=== PATIENT | female | born 1970 | race Caucasian/White ===

== ENCOUNTER 2019-07-08 11:47 | Observation (INO) ==
[2019-07-08] MEDS ORDERED: NS 1,000 ML IV ONE (11:58)
--- NOTE | 2019-07-08 12:00 | PROVIDER DOCUMENTATION ---
HPI-Screening - General Chief Complaint: SEPSIS ALERT - D Stated Complaint: ABNORMAL LABS Time Seen by Provider: 07/08/19 11:54 Source: patient Allergies/Adverse Reactions: Allergies Allergy/AdvReac Type Severity Reaction Status Date / Time No Known Allergies Allergy Verified 03/09/18 18:27 Home Medications: Home Medication List Medication Instructions Recorded Confirmed Last Taken Type Albuterol Sulfate [Proair Hfa] 8.5 gm INH DIRECTED 03/09/18 03/09/18 Unknown History Ciprofloxacin HCl [Cipro] 500 mg PO BID 03/09/18 03/09/18 Unknown History Methocarbamol [Robaxin-750] 750 mg PO BID PRN #60 tablet 03/09/18 Unknown Rx Naproxen 500 mg PO BID PRN PRN #60 tablet 03/09/18 Unknown Rx Patient arrived via EMS?: No HPI: 48yof present to ER with c/o flank and suprapubic pain onset Monday. States she started having n/v yesterday. Pt was seen at [facility] this morning and referred here due to RLQ abd tenderness and WBC 14. Denies fever. Pt diaphoretic. Physical Exam-Screening - CONSTITUTIONAL General Appearance: alert, mild distress - RESPIRATORY Respiratory: lungs clear, normal breath sounds - CARDIOVASCULAR Cardiovascular: tachycardia - GASTROINTESTINAL (ABDOMEN) Abdominal Exam: normal bowel sounds, soft, tenderness (RUQ and RLQ). negative: distended, guarding, rigid, rebound - SKIN Integumentary: normal color, diaphoresis, warm - NEUROLOGIC Neurologic: grossly normal - PSYCHIATRIC Psych/Mental Status: normal mood/affect, normal thought content, normal thought process, oriented x 3 Screening Depart - Departure ED Screening Disposition: Continued in ED for Treatment Date of Disposition Decision: 07/08/19 Time of Disposition Decision: 12:00 DIAGNOSIS: Abdominal pain Qualifiers: Abdominal location: unspecified location Qualified Code(s): R10.9 - Unspecified abdominal pain Referrals and Follow-Ups: Francisco Javier Butler MD [Primary Care Provider] - Attestation - Physician/ JUSTEN Attestation Patient care was provided by Advanced Practice Provider:: Yes Advanced Practice Provider:: Edouard Cervantes Advanced Practice Provider documentation review:: The Mid-level provider documentation, treatment plan and medical decision making was reviewed by the physician who agrees with all treatment and medical decision making by the MLP. The physician spent face to face time with patient:: No Advanced Practice Provider documentation review:: Supervising physician onsite and consulted in the evaluation and care of this patient. The physician did not have a face to face encounter with the patient.
[2019-07-08 12:17] LABS: BASO# 0.03 X1000 (0.0-0.2); BASO% 0.2 % (0.0-0.8); HEMATOCRIT 47.5 % (37.0-47.0); HEMOGLOBIN 15.5 g/dL (12.0-16.0); IMM GRAN# 0.04 X1000 (0.0-0.04); IMM GRAN% 0.3 % (0.0-0.5); LYMPH% 12.2 % (20.5-51.1); MCH 29.1 PG (27-31); MCHC 32.6 g/dL (33-37); MCV 89.3 FL (81-99); MONO# 0.65 X1000 (0.11-0.59); MONO% 4.2 % (1.7-9.3); MPV 12.3 FL (7.4-10.4); NEUT# 12.93 X1000 (1.4-6.5); NEUT% 83.1 % (42.2-75.2); PLT 253 X1000 (130-400); RBC 5.32 XMIL (4.2-5.4); RDW 14.4 % (11.5-14.5); WBC 15.55 X1000 (4.8-10.8)
[2019-07-08 12:26] LABS: INR 1.09; PROTIME 14.2 Seconds (11.0-16.0)
[2019-07-08 12:27] LABS: PTT 30.3 Seconds (22.3-41.8)
[2019-07-08 12:33] LABS: ALB/GLOB RATIO 1.1; ALBUMIN 3.8 g/dL (3.5-5.0); CALCIUM 8.9 mg/dL (8.8-10.2); TOTAL BILIRUBIN 0.37 mg/dL (0.20-1.00); TOTAL PROTEIN 7.2 g/dL (6.3-8.3)
--- NOTE | 2019-07-08 13:03 | PROVIDER DOCUMENTATION ---
HPI-Abdominal Pain/GI Problem - General Chief Complaint: SEPSIS ALERT - D Stated Complaint: ABNORMAL LABS Time Seen by Provider: 07/08/19 11:54 Source: patient Allergies/Adverse Reactions: Patient Allergies Allergy/AdvReac Type Severity Reaction Status Date / Time homatropine [From Hydromet] Allergy Mild ITCHING Verified 07/08/19 14:12 hydrocodone [From Hydromet] Allergy Mild ITCHING Verified 07/08/19 14:12 Home Medications: Home Medication List Medication Instructions Recorded Confirmed Last Taken Type Ciprofloxacin [Cipro] 250 mg PO BID #10 tab 07/08/19 Unknown Rx Dicyclomine [Bentyl] 20 mg PO BID #20 cap 07/08/19 Unknown Rx Ondansetron Odt [Zofran 4 mg Odt] 4 mg PO Q6H PRN PRN #20 tab 07/08/19 Unknown Rx Promethazine [Phenergan] 25 mg PO Q6H PRN PRN #20 tab 07/08/19 Unknown Rx - History of Present Illness-ABD Nature of Presenting Problems: 48yof present to ER with c/o abd pain onset 2 days ago. Reports pain started in bilateral flanks and suprapubic. States n/v started yesterday. Denies fever. Pt reports she went to [facility] this morning and was sent here due to elevated WBC and RLQ abd tenderness. Abdominal Pain Onset Location: reports: suprapubic, flank Pain Radiation: reports: RLQ Quality of Pain: reports: sharp, stabbing Onset/Duration: reports: 2 days ago Timing: reports: still present Associated Symptoms: reports: diaphoresis, nausea, vomiting. denies: chest pain, diarrhea, fever/chills, shortness of breath Review of Systems - Adult - REVIEW OF SYSTEMS - ADULT Constitutional: reports: no symptoms reported. denies: fever Eyes: reports: no symptoms reported Ears, Nose, Mouth & Throat: reports: no symptoms reported Cardiovascular: reports: no symptoms reported. denies: chest pain Respiratory: reports: no symptoms reported. denies: shortness of breath Gastrointestinal: reports: see HPI, abdominal pain, nausea, vomiting. denies: diarrhea Genitourinary: reports: no symptoms reported. denies: dysuria, frequency Musculoskeletal: reports: no symptoms reported Integumentary: reports: no symptoms reported Neurological: reports: no symptoms reported Psychiatric: reports: no symptoms reported Endocrine: reports: no symptoms reported Hematologic/Lymphatic: reports: no symptoms reported Allergic/Immunologic: reports: no symptoms reported All Other Systems: Reviewed and Negative Past History - Adult - PAST MEDICAL HISTORY-ADULT Review of Records: reports: Old Records Reviewed, Nursing Assessment Review, Medications Reviewed, Social history reviewed & non-contributory. Major Childhood Illnesses: reports: denies history Cardiovascular: reports: denies history Respiratory: reports: asthma Gastrointestinal: reports: denies history Obstetrical/Gynecological: reports: denies history Genitourinary: reports: denies history Musculoskeletal: reports: denies history Neurological: reports: denies history Endocrine/Immune: reports: denies history Other Conditions: reports: denies history - PRIOR SURGERIES/PROCEDURES Surgical/Procedure History: reports: cholecystectomy, hysterectomy - IMMUNIZATION STATUS Childhood Immunizations: See Nurse Assessment Flu Vaccine: See Nurse Assessment - SOCIAL HISTORY Smoking: denies Physical Exam-General - PHYSICAL EXAM-ADULT Initial Vital Signs Reviewed: Yes - CONSTITUTIONAL General Appearance: alert, mild distress, anxious - HEAD, EARS, NOSE, MOUTH & THROAT HENMT: moist mucous membranes. negative: angioedema - NECK Neck: full range of motion, supple, normal inspection - RESPIRATORY Respiratory: lungs clear, normal breath sounds, no respiratory distress, no accessory muscle use - CARDIOVASCULAR Cardiovascular: tachycardia - GASTROINTESTINAL (ABDOMEN) Abdominal Exam: normal bowel sounds, soft, tenderness (RLQ, RUQ). negative: distended, guarding, rigid, rebound - MUSCULOSKELETAL Back Exam: normal inspection, no CVA tenderness Extremity: normal range of motion, normal gait, normal inspection - SKIN Integumentary: normal color, diaphoresis, warm - NEUROLOGIC Neurologic: grossly normal, no motor/sensory deficits - PSYCHIATRIC Psych/Mental Status: normal thought content, normal thought process, oriented x 3, anxious Progress - PLAN OF CARE/RESULTS Progress/Plan/Lab Results: Vital Signs - 8 hr 07/08/19 11:51 Temperature 97.8 F Pulse Rate 114 H Respiratory Rate 22 Blood Pressure 127/71 O2 Sat by Pulse Oximetry 97 Laboratory Results - last 24 hr 07/08/19 07/08/19 07/08/19 12:05 12:05 12:05 WBC 15.55 H RBC 5.32 Hgb 15.5 Hct 47.5 H MCV 89.3 MCH 29.1 MCHC 32.6 L RDW Std Deviation 14.4 Plt Count 253 MPV 12.3 H Immature Gran % (Auto) 0.3 Neut % (Auto) 83.1 H Lymph % (Auto) 12.2 L [place] % (Auto) 4.2 Eos % (Auto) 0.0 Baso % (Auto) 0.2 Immature Gran # (Auto) 0.04 Neut # (Auto) 12.93 H Lymph # (Auto) 1.90 [place] # (Auto) 0.65 H Eos # (Auto) 0.00 Baso # (Auto) 0.03 PT 14.2 INR 1.09 PTT (Actin FS) 30.3 Sodium 137 Potassium 4.0 Chloride 98 Carbon Dioxide 21 L Anion Gap 18 BUN 14 Creatinine 1.0 H Estimated GFR/1.73 m2 59 BUN/Creatinine Ratio 14 Glucose 145 H Calculated Osmolality 277 Calcium 8.9 Total Bilirubin 0.37 AST 50 H ALT 63 H Alkaline Phosphatase 171 H Creatine Kinase 94 Troponin T Total Protein 7.2 Albumin 3.8 Globulin 3.4 Albumin/Globulin Ratio 1.1 Plasma Lactate 07/08/19 07/08/19 12:05 12:05 WBC RBC Hgb Hct MCV MCH MCHC RDW Std Deviation Plt Count MPV Immature Gran % (Auto) Neut % (Auto) Lymph % (Auto) [place] % (Auto) Eos % (Auto) Baso % (Auto) Immature Gran # (Auto) Neut # (Auto) Lymph # (Auto) [place] # (Auto) Eos # (Auto) Baso # (Auto) PT INR PTT (Actin FS) Sodium Potassium Chloride Carbon Dioxide Anion Gap BUN Creatinine Estimated GFR/1.73 m2 BUN/Creatinine Ratio Glucose Calculated Osmolality Calcium Total Bilirubin AST ALT Alkaline Phosphatase Creatine Kinase Troponin T < 0.010 Total Protein Albumin Globulin Albumin/Globulin Ratio Plasma Lactate 1.2 Orders Category Date Time Status Cardiac Monitoring DIRECTED Care 07/08/19 11:54 Active IV Insertion ORDERED Care 07/08/19 11:54 Active Notify MD of + Sepsis Screen NOW Care 07/08/19 11:54 Active CHEST-1 VIEW [RAD] Stat Exams 07/08/19 11:[address] ABD/PELVIS W/IV CONT ONLY [CT] Stat Exams 07/08/19 11:57 Ordered BLOOD CULTURE [BLDCUL] Stat Lab 07/08/19 12:05 Ordered CBC WITH DIFF [HEME] Stat Lab 07/08/19 12:05 Completed CK PROFILE [SP CHEM] Stat Lab 07/08/19 12:05 Completed COMPREHENSIVE METABOLIC PANEL [CHEM] Stat Lab 07/08/19 12:05 Completed LACTATE, PLASMA [CHEM] Lab 07/08/19 15:00 Uncollected LACTATE, PLASMA [CHEM] Lab 07/08/19 18:00 Uncollected LACTATE, PLASMA [CHEM] Q3H Lab 07/08/19 12:05 Completed LIPASE [CHEM] Stat Lab 07/08/19 12:05 Received PROTIME WITH INR [COAG] Stat Lab 07/08/19 12:05 Completed PTT [COAG] Stat Lab 07/08/19 12:05 Completed TROPONIN T Stat Lab 07/08/19 12:05 Completed URINALYSIS W/POSS RFLX CULT [URINALYSIS] Stat Lab 07/08/19 11:54 Uncollected 0.9% Sodium Chloride Inj [Ns] 1,000 ml Med 07/08/19 11:58 Discontinued IV 999 mls/hr Oxygen Device Stat Oth 07/08/19 11:54 Active Result Diagrams: 07/08/19 12:05 07/08/19 12:05 - REASSESSMENT Reassessment #1 Time Reassessed: 15:33 (Pt states she is still having some nausea. No vomiting or diarrhea since arrival. Reviewed results thus far with pt and family member. RN at bedside to administer IV fluids and collect UA. Will reassess pending UA results) Reassessment #2 Time Reassessed: 15:56 (discussed all results with pt and tx plan.) - XRAY 1 XRAY Study: Chest Impression: See EMR Report (EXAM: CHEST-1 VIEW 07/08/2019 HISTORY: POSSIBLE SEPSIS TECHNIQUE: AP upright at 1327 COMMENT: There is no evidence of acute cardiac or pulmonary disease. There are no previous studies. IMPRESSION: No evidence of acute disease. Electronically signed by Harley Lewis 07/08/2019 1:27 PM) - CT/MRI 1 CT Study: Abdomen, Pelvis Impression: See EMR Report (EXAM: CT ABD/PELVIS W/IV CONT ONLY 07/08/2019 HISTORY: abd pain TECHNIQUE: This exam was performed using automated exposure control, adjustment of mA or kV according to patient size, and/or use of iterative reconstruction technique. COMMENT: The current examination is compared with the previous study of 03/09/2018. There is a small nodular pleural-based opacity in the anterolateral left lower lobe on image 28 which is not clearly identifiable on the previous study. The liver is hypodense suggesting fatty change. The adrenal glands are not enlarged. The gallbladder is surgically absent. The aorta is not distended. The mesenteric and renal arteries are patent. There is some fullness of the left collecting system withou t evidence of stones. There are no apparent renal masses. The appearance of the left kidney is similar to the noncontrast study of 03/09/2018. There is some fluid in the small bowel. The colon is nondistended. It is similar in appearance to the previous study. There is some mild stranding in the pericolonic fat over the transverse and ascending colon. The possibility of mild colitis cannot be excluded. There our prominent ileocolic nodes one of which measures over 10 mm in diameter and has clearly increased in size since the previous study. Pelvis: The appendix is normal in appearance. There is some induration in the subcutaneous fat directly caudal to the umbilicus of uncertain significance. The urinary bladder is not distended. There has been hysterectomy. There is an apparent cystic structure in the area of the left adnexa which was also present on the previous study and which has not changed significantly in size or appearance. There is no evidence of free fluid. The regional skeleton is intact. IMPRESSION: 1. Questionable mild colitis. Ileocolic mesenteric adenitis. 2. Hepatic steatosis. 3. Stable left adnexal cyst. Electronically signed by Harley Lewis 07/08/2019 1:41 PM) Departure - Departure Date of Disposition Decision: 07/08/19 Time of Disposition Decision: 15:56 DIAGNOSIS: Abdominal pain Qualifiers: Abdominal location: unspecified location Qualified Code(s): R10.9 - Unspecified abdominal pain Disposition: HOME 01 Certified Medical Emergency: Emergent Condition: Stable Additional Instructions: rest increase fluids follow up with PCP return to ER if symptoms change or worsen, or fever ED Follow Up Instructions: You have been treated by a care provider in the Emergency Department. These instructions are being provided to you so you can have an understanding of how to care for yourself upon discharge. Upon discharge from the Emergency Department, you are responsible for making arrangements for follow-up care by a physician of your choice. Take all prescribed medications as directed. Return to the Emergency Department immediately for any new or worsening symptoms. You may call the Physician Referral phone number at [phone] to obtain a list of Physicians who are taking new patients. Prescriptions: Dicyclomine [Bentyl] 20 mg PO BID #20 cap Ciprofloxacin [Cipro] 250 mg PO BID #10 tab Promethazine [Phenergan] 25 mg PO Q6H PRN PRN #20 tab PRN Reason: Nausea Ondansetron Odt [Zofran 4 mg Odt] 4 mg PO Q6H PRN PRN #20 tab PRN Reason: Nausea And Vomiting Referrals and Follow-Ups: Francisco Javier Butler MD [Primary Care Provider] - Discharge Education: Abdominal Pain, Adult, Gastritis, Adult, [id number] - Critical Care Note This patient required my direct & personal management of CC.: No Attestation - Physician/ JUSTEN Attestation Patient care was provided by Advanced Practice Provider:: Yes Advanced Practice Provider:: Edouard Cervantes Advanced Practice Provider documentation review:: The Mid-level provider documentation, treatment plan and medical decision making was reviewed by the physician who agrees with all treatment and medical decision making by the MLP. The physician spent face to face time with patient:: No Advanced Practice Provider documentation review:: Supervising physician onsite and consulted in the evaluation and care of this patient. The physician did not have a face to face encounter with the patient.
--- NOTE | 2019-07-08 13:29 | Diag Imaging Result Doc PS360 ---
EXAM: CHEST-1 VIEW 07/08/2019 HISTORY: POSSIBLE SEPSIS TECHNIQUE: AP upright at 1327 COMMENT: There is no evidence of acute cardiac or pulmonary disease. There are no previous studies. IMPRESSION: No evidence of acute disease. Electronically signed by Harley Lewis 07/08/2019 1:27 PM
--- NOTE | 2019-07-08 13:44 | Diag Imaging Result Doc PS360 ---
EXAM: CT ABD/PELVIS W/IV CONT ONLY 07/08/2019 HISTORY: abd pain TECHNIQUE: This exam was performed using automated exposure control, adjustment of mA or kV according to patient size, and/or use of iterative reconstruction technique. COMMENT: The current examination is compared with the previous study of 03/09/2018. There is a small nodular pleural-based opacity in the anterolateral left lower lobe on image 28 which is not clearly identifiable on the previous study. The liver is hypodense suggesting fatty change. The adrenal glands are not enlarged. The gallbladder is surgically absent. The aorta is not distended. The mesenteric and renal arteries are patent. There is some fullness of the left collecting system without evidence of stones. There are no apparent renal masses. The appearance of the left kidney is similar to the noncontrast study of 03/09/2018. There is some fluid in the small bowel. The colon is nondistended. It is similar in appearance to the previous study. There is some mild stranding in the pericolonic fat over the transverse and ascending colon. The possibility of mild colitis cannot be excluded. There our prominent ileocolic nodes one of which measures over 10 mm in diameter and has clearly increased in size since the previous study. Pelvis: The appendix is normal in appearance. There is some induration in the subcutaneous fat directly caudal to the umbilicus of uncertain significance. The urinary bladder is not distended. There has been hysterectomy. There is an apparent cystic structure in the area of the left adnexa which was also present on the previous study and which has not changed significantly in size or appearance. There is no evidence of free fluid. The regional skeleton is intact. IMPRESSION: 1. Questionable mild colitis. Ileocolic mesenteric adenitis. 2. Hepatic steatosis. 3. Stable left adnexal cyst. Electronically signed by Harley Lewis 07/08/2019 1:41 PM
[2019-07-08] MEDS ORDERED: SODIUM CHLORIDE 0.9% INJ ONE (15:17)
[2019-07-08] MEDS ORDERED: PHENERGAN IV ONE (15:17)
[2019-07-08 15:41] LABS: URINE SOURCE CLEAN CATCH
[2019-07-08 15:44] LABS: BILIRUBIN URINE NEGATIVE (NEGATIVE); BLOOD URINE SMALL (NEGATIVE); COLOR YELLOW; GLUCOSE URINE NEGATIVE (NEGATIVE); KETONE URINE 60 mg/dL (NEGATIVE); LEUKOCYTES URINE NEGATIVE (NEGATIVE); NITRITE URINE NEGATIVE (NEGATIVE); PH URINE 6.5; PROTEIN URINE 100 mg/dL (NEGATIVE); TURBIDITY URINE CLEAR (CLEAR); UR EPITHELIAL CELLS <10 /HPF (<10); URINE BACTERIA NEGATIVE /HPF; URINE RBC <10 /HPF (<10); URINE WBC <10 /HPF (<10); UROBILINOGEN URINE NORMAL (NORMAL)
[2019-07-08] MEDS ORDERED: BENTYL PO ONE (15:55)
[2019-07-08] MEDS ORDERED: TYLENOL PO PRN (18:51)
[2019-07-08] MEDS: NS 1,000 ML IV SCH (22:51)
[2019-07-09] MEDS: ZOFRAN IV PRN ×2 (00:21→07:07)
[2019-07-09 07:19] LABS: BASO# 0.02 X1000 (0.0-0.2); BASO% 0.2 % (0.0-0.8); EOS# 0.01 X1000 (0.0-0.7); EOS% 0.1 % (0.0-10.0); HEMATOCRIT 42.5 % (37.0-47.0); HEMOGLOBIN 13.6 g/dL (12.0-16.0); IMM GRAN# 0.03 X1000 (0.0-0.04); IMM GRAN% 0.3 % (0.0-0.5); LYMPH# 1.82 X1000 (1.2-3.4); LYMPH% 17.9 % (20.5-51.1); MCH 29.1 PG (27-31); MONO# 1.01 X1000 (0.11-0.59); MPV 12.7 FL (7.4-10.4); NEUT# 7.26 X1000 (1.4-6.5); NEUT% 71.5 % (42.2-75.2); PLT 233 X1000 (130-400); RBC 4.67 XMIL (4.2-5.4); RDW 14.2 % (11.5-14.5); WBC 10.15 X1000 (4.8-10.8)
[2019-07-09 07:47] LABS: AGAP 13; ALB/GLOB RATIO 0.9; ALBUMIN 3.3 g/dL (3.5-5.0); ALKALINE PHOSPHATASE 145 U/L (32-104); BUN 12 mg/dL (8-22); CALCIUM 8.5 mg/dL (8.8-10.2); CHLORIDE 100 mmol/L (98-107); COSMO 278; CREATININE 0.8 mg/dL (0.5-0.9); ESTIMATED GFR > 60; GLUCOSE 103 mg/dL (70-104); GOT 29 U/L (10-30); GPT 46 U/L (10-36); MAGNESIUM 2.2 mg/dL (1.5-2.7); POTASSIUM 3.4 mmol/L (3.5-5.1); SODIUM 139 mmol/L (136-145); TCO2 26 mmol/L (25-35); TOTAL BILIRUBIN 0.28 mg/dL (0.20-1.00); TOTAL PROTEIN 6.8 g/dL (6.3-8.3)
[2019-07-09] MEDS: NS 1,000 ML IV SCH ×2 (08:15→17:30)
--- NOTE | 2019-07-09 09:14 | HISTORY AND PHYSICAL ---
HISTORY: Ms. Licona is a 48-year-old patient of mine who on Monday, this is Monday, but Monday started having some nausea and diarrhea started on Monday and she has not eaten or drank much at all. [place] very weak, general malaise, myalgia and arthralgia and fever and chills. PAST MEDICAL HISTORY: She was taking some Cipro I believe for urinary tract infection and she takes Bentyl. She has a history of irritable bowel syndrome. ALLERGIES: Homatropine and hydrocodone. FAMILY HISTORY: Denies any significant family history, heart or respiratory problems or renal issues. SOCIAL HISTORY: Negative for alcohol or tobacco. No illicit drugs. REVIEW OF SYSTEMS: General: No weight gain or loss that she is aware of. No fever or chills until Monday which was 2 days ago. She has felt fever in the last 2 days and diarrhea and nausea numerous times throwing up. No p.o. intake to speak of except a little bit of fluid. Musculoskeletal/Neurologic: No focal complaints. Endocrinologic/hematologic: No significant history. PHYSICAL EXAMINATION: GENERAL: Well-developed, well-nourished white female. Temperature is 98 degrees, pulse 87, respirations 19, blood pressure 118/58. Pupils are equal and round. LUNGS: Clear in all lung carey. CARDIOVASCULAR: Regular rhythm and rate without murmur or S3. ABDOMEN: Soft, nondistended. SKIN: Warm and dry. No pedal edema. No skin rashes. NECK: Supple without any thyromegaly or adenopathy. Weight 258 pounds. Height 5 feet 5 inches. LABORATORY DATA: White count 70537, hematocrit 47, platelet count 253,000. Sodium 137, potassium 4.0, chloride 98, BUN 14, creatinine 1.0, AST 50, ALT was 63, alkaline phosphatase is 171. Pro time is 14.2. PTT is 30. Urinalysis was unremarkable. CT of the abdomen and pelvis with IV contrast only, questionable mild colitis, ileocolonic mesenteric adenitis, hepatic steatosis, stable left adrenal cyst. Chest x-ray, there is no evidence of acute cardiac or pulmonary disease. There is no previous studies. No evidence of acute disease. No infiltrates. ASSESSMENT AND PLAN: This looks like it is a viral gastroenteritis. She has leukocytosis I think secondary to nausea and the viral enteritis. She appears to be mildly vascular volume depletion. We will give her fluids, normal saline and run that in at 100 mL an hour. We will give her Zofran antiemetic and just give her clear liquids at this point and rehydrate her. See if she is doing a little better. Use Tylenol for the myalgia and arthralgia. cc: Francisco Javier Butler MD
--- NOTE | 2019-07-09 12:19 | PROGRESS NOTE ---
DATE: 07/09/2019 SUBJECTIVE: Ms. rangel is a 48-year-old admitted in yesterday with looks like viral gastroenteritis. She reports that she does feel better, less nausea. She is requesting some food so I am going to try her on a soft medical diet. OBJECTIVE: Vital Signs: She remains afebrile. Lungs: Clear in all lung carey. Cardiovascular: Regular rhythm and rate without murmur or S3. Abdomen: Soft. Skin: Warm and dry. LABORATORY DATA: Her white count came down to 10,150. Sodium 139, creatinine 1 to 0.8. Transaminases have come down nicely. PLAN: We will try a soft GI diet and see how she does. Continue fluids. cc: Francisco Javier Butler MD
[2019-07-10] MEDS: NS 1,000 ML IV SCH (03:31)
--- NOTE | 2019-07-10 10:39 | DISCHARGE SUMMARY ---
ADMISSION DATE: 07/08/2019 DISCHARGE DATE: 07/10/2019 HOSPITAL COURSE: This is a 48-year-old patient of mine. She came in on Monday. The previous Monday she was having nausea and then started having some diarrhea, general malaise, not eating or drinking much, appeared to be mildly dehydrated and consistent with a viral gastroenteritis. She had been taking some Cipro for urinary tract infection. She does have underlying irritable bowel syndrome. I gave her fluids, kept her on clear liquids. Her white count when she came in was 15,550, hematocrit 47, platelet count 253,000, and her chemistry with sodium 137, potassium 4.0, chloride 98. BUN 14, creatinine 1.00. Mild elevation in transaminases; AST was 50, ALT was 63, and these normalized. Renal function looked good. Her nausea dissipated, able to advance her to a soft gastrointestinal diet, and she wanted to go home on 07/10/2019, so we will discharge her home. Her home medicines: She can quit the Cipro. She takes Bentyl 20 mg twice a day as needed, and she has some Phenergan at home she can use as needed. She is to let me know if she has any further trouble. We will have her just slowly advance her diet. Note her chest x-ray with no acute disease. Abdominal and pelvic CT was done and it showed questionable mild colitis, ileocolic mesenteric adenitis, hepatic steatosis and stable left adnexal cyst. cc: Francisco Javier Butler MD
[2019-07-10 12:52] VITALS: BP 131/69
== END 2019-07-10 13:37 | disposition home or self-care (01) ==
LOC: EDIPHOLD 11:47 → ED 11:47 → 3N 21:56
PROVIDERS: ADMIT Emergency Medicine; ATTEND Emergency Medicine